=== PATIENT | male | born 1965 | race Caucasian/White ===

== ENCOUNTER 2017-10-29 17:22 | Inpatient (IN) | payer OTHER ==
[2017-10-29] MEDS ORDERED: Sodium Chloride 0.9% 10 ML Syringe FLUSH PRN (17:34)
[2017-10-29] MEDS ORDERED: HYDROmorphone 0.5 MG/0.5 ML SYRINGE IVPUSH ONE ×2 (17:35→19:34)
--- NOTE | 2017-10-29 18:49 | EDM.PDOC ---
ED HPI GENERAL MEDICAL PROBLEM - General Chief Complaint: Lower Extremity Injury/Pain Stated Complaint: LEFT ANKLE INJURY Time Seen by Provider: 10/29/17 17:30 Source of Information: Reports: Patient History Limitations: Reports: No Limitations - History of Present Illness INITIAL COMMENTS - FREE TEXT/NARRATIVE: The patient was using a cheater bar and it slipped and he twisted and he heard a pop and felt severe pain above his ankle. He denies any other injury. He has a history of HTN and he is on meds. He has no fever, chills, cough, chest pain, shortness of breath, abdominal pain, nausea or vomiting. He could not walk on it when it happened. Onset: Sudden Duration: Minutes: Location: Reports: Lower Extremity, Left (lower leg) Quality: Reports: Sharp Severity: Severe Improves with: Reports: Immobilization Worsens with: Reports: Movement Context: Reports: Activity (His cheater bat slipped and he twisted) Associated Symptoms: Reports: No Other Symptoms Right Leg Pain Score (Numeric/FACES): 7 - Related Data Allergies Allergy/AdvReac Type Severity Reaction Status Date / Time No Known Allergies Allergy Verified 10/29/17 17:33 Home Meds: Home Meds Losartan [Cozaar] 100 mg PO BEDTIME 10/29/17 [History] Metoprolol Tartrate 50 mg PO DAILY 10/29/17 [History] Past Medical History HEENT History: Reports: Impaired Vision Cardiovascular History: Reports: Hypertension Musculoskeletal History: Reports: Fracture Other Musculoskeletal History: Shoulder Fx - Past Surgical History HEENT Surgical History: Reports: Tonsillectomy Other Musculoskeletal Surgeries/Procedures:: Elbow surgery Social & Family History - Family History Family Medical History: Noncontributory - Tobacco Use Smoking Status *Q: Never Smoker - Alcohol Use Days Per Week of Alcohol Use: 7 Number of Drinks Per Day: 10 Total Drinks Per Week: 70 - Recreational Drug Use Recreational Drug Use: No Review of Systems - Review of Systems Review Of Systems: See Below Constitutional: Reports: No Symptoms Eyes: Reports: No Symptoms Ears: Reports: No Symptoms Nose: Reports: No Symptoms Mouth/Throat: Reports: No Symptoms Respiratory: Reports: No Symptoms Cardiovascular: Reports: No Symptoms GI/Abdominal: Reports: No Symptoms Genitourinary: Reports: No Symptoms Musculoskeletal: Reports: Other (Severe pain and deformity to the left lower leg ) ED EXAM, GENERAL - Physical Exam Exam: See Below Exam Limited By: No Limitations General Appearance: Alert, No Apparent Distress Ears: Normal External Exam Nose: Normal Inspection Head: Atraumatic, Normocephalic Neck: Normal Inspection Respiratory/Chest: No Respiratory Distress, Lungs Clear, Normal Breath Sounds Cardiovascular: Regular Rate, Rhythm, No Edema, No Murmur GI/Abdominal: Soft, Non-Tender, No Organomegaly, No Mass Back Exam: Normal Inspection Extremities: Other (mild deformity just proximal to the ankle. Pain upon palption to that area and good sensation and pulses distally.) ED TRAUMA EXTREMITY PROCEDURES - Splinting Left Lower Extremity Splint Site: Left lower leg Pre-Procedure NV Status: Normal Post-Procedure NV Status: Normal Splint Material: Fiberglass Splint Design: Stirrup (and posterior lower leg) Applied & Form Fitted By: Provider Provider Post-Splint Application NV Check: NV Status Normal, Good Position Complications: No Course - Vital Signs Last Recorded V/S: Last Vital Signs Temp 97.3 F 10/29/17 17:29 Pulse 71 10/29/17 17:29 Resp 18 10/29/17 17:29 BP 141/81 H 10/29/17 17:29 Pulse Ox 100 10/29/17 17:29 - Orders/Labs/Meds Orders: Active Orders 24 hr Category Date Time Status Peripheral IV Care [RC] . DIRECTED Care 10/29/17 17:35 Active Ankle Min 3V Lt [CR] Stat Exams 10/29/17 17:35 Taken Sodium Chloride 0.9% [Saline Flush] Med 10/29/17 17:34 Active 10 ml FLUSH ASDIRECTED PRN Peripheral IV Insertion Adult [OM.PC] Routine Oth 10/29/17 17:34 Ordered Medication Orders Sodium Chloride (Saline Flush) 10 ml FLUSH ASDIRECTED PRN PRN Reason: Keep Vein Open Last Admin: 10/29/17 17:46 Dose: 10 ml Meds: Medications Generic Name Dose Route Start Last Admin Trade Name Freq PRN Reason Stop Dose Admin Sodium Chloride 10 ml 10/29/17 17:34 10/29/17 17:46 Saline Flush FLUSH 10 ml ASDIRECTED PRN Administration Keep Vein Open Discontinued Medications Generic Name Dose Route Start Last Admin Trade Name Freq PRN Reason Stop Dose Admin Hydromorphone HCl 0.5 mg 10/29/17 17:35 10/29/17 17:46 Dilaudid IVPUSH 10/29/17 17:36 0.5 mg ONETIME ONE Administration Hydromorphone HCl 0.5 mg 10/29/17 19:34 10/29/17 19:39 Dilaudid IVPUSH 10/29/17 19:35 0.5 mg ONETIME ONE Administration - Re-Assessments/Exams Free Text/Narrative Re-Assessment/Exam: 10/29/17 20:00 I ordered an IV saline lock, dilaudid 0.5mg IV, and an x-ray. His x-ray shows a spiral fracture of the distal tib/fib. I called Dr Zelaya and he came to see the patient. He asked if I can call Dr Fitzgerald and see if she could admit. She agreed. I gave him more dilaudid 0.5mg IV before splinting. Departure - Departure Time of Disposition: 20:05 Disposition: Refer to Observation Condition: Good Clinical Impression: Fracture of distal end of tibia with fibula Qualifiers: Encounter type: initial encounter Fracture type: closed Laterality: left Qualified Code(s): S82.302A - Unspecified fracture of lower end of left tibia, initial encounter for closed fracture; S82.832A - Other fracture of upper and lower end of left fibula, initial encounter for closed fracture - Discharge Information Referrals: Tamie Huitron DO [Primary Care Provider] - Forms: ED Department Discharge - My Orders Last 24 Hours: My Active Orders 10/29/17 17:34 Sodium Chloride 0.9% [Saline Flush] 10 ml FLUSH ASDIRECTED PRN Peripheral IV Insertion Adult [OM.PC] Routine 10/29/17 17:35 Peripheral IV Care [RC] . DIRECTED Ankle Min 3V Lt [CR] Stat - Assessment/Plan Last 24 Hours: My Active Orders 10/29/17 17:34 Sodium Chloride 0.9% [Saline Flush] 10 ml FLUSH ASDIRECTED PRN Peripheral IV Insertion Adult [OM.PC] Routine 10/29/17 17:35 Peripheral IV Care [RC] . DIRECTED Ankle Min 3V Lt [CR] Stat
--- NOTE | 2017-10-29 20:50 | PCM.HP ---
H&P History of Present Illness - General Date of Service: 10/29/17 Admit Problem/Dx: Admission Diagnosis/Problem Admission Diagnosis/Problem Fracture of ankle Source of Information: Patient, Provider - History of Present Illness Initial Comments - Free Text/Narative: 51 year old male with PMH of hypertension presents with fractured distal left tib-fib. He will be scheduled for ORIF on 10/30/17. He denies CP, SOB, othopnea, PND or a syncopal episode. He is able to do chores around the house without difficulty. + Onset of Symptoms: Reports: Sudden Symptom Onset Date: 10/29/17 Duration of Symptoms: Reports: Hour(s):, Getting Worse Location: Reports: Lower Extremity, Left Quality: Reports: Throbbing Severity: Moderate Improves with: Reports: Medication Worsens with: Reports: Movement Associated Symptoms: Reports: No Other Symptoms Right Leg Pain Score (Numeric/FACES): 7 - Related Data Allergies/Adverse Reactions: Allergies Allergy/AdvReac Type Severity Reaction Status Date / Time No Known Allergies Allergy Verified 10/29/17 17:33 Home Medications: Home Meds Losartan [Cozaar] 100 mg PO BEDTIME 10/29/17 [History] Metoprolol Tartrate 50 mg PO DAILY 10/29/17 [History] Levothyroxine Sodium [Synthroid] 125 mcg PO DAILY 10/30/17 [History] Past Medical History HEENT History: Reports: Impaired Vision Cardiovascular History: Reports: Hypertension Musculoskeletal History: Reports: Fracture Other Musculoskeletal History: Shoulder Fx - Past Surgical History HEENT Surgical History: Reports: Tonsillectomy Other Musculoskeletal Surgeries/Procedures:: Elbow surgery Social & Family History - Family History Family Medical History: Noncontributory - Tobacco Use Smoking Status *Q: Never Smoker - Alcohol Use Days Per Week of Alcohol Use: 7 Number of Drinks Per Day: 10 Total Drinks Per Week: 70 - Recreational Drug Use Recreational Drug Use: No H&P Review of Systems - Review of Systems: Review Of Systems: ROS reveals no pertinent complaints other than HPI. Exam - Exam Exam: See Below - Vital Signs Vital Signs: Last Vital Signs Temp 36.3 C 10/29/17 17:29 Pulse 71 10/29/17 17:29 Resp 18 10/29/17 17:29 BP 141/81 H 10/29/17 17:29 Pulse Ox 100 10/29/17 17:29 Weight: 117.934 kg - Exam Quality Assessment: DVT Prophylaxis General: Alert, Oriented, Cooperative HEENT: Conjunctiva Clear, Nares Patent, Normal Nasal Septum, Pupils Equal, Pupils Reactive, PERRLA Neck: Supple, Trachea Midline Lungs: Clear to Auscultation, Normal Respiratory Effort Cardiovascular: Regular Rate, Regular Rhythm GI/Abdominal Exam: Normal Bowel Sounds, Soft, Non-Tender, No Organomegaly, No Distention (Male) Exam: Deferred Rectal (Males) Exam: Deferred Back Exam: Normal Inspection Extremities: Normal Inspection, Normal Capillary Refill, Leg Pain (left sided), Redness Skin: Warm Neurological: Cranial Nerves Intact, Reflexes Equal Bilateral, Normal Speech Neuro Extensive - Mental Status: Alert, Oriented x3, Normal Mood/Affect, Normal Cognition, Memory Intact Neuro Extensive - Motor, Sensory, Reflexes: CN II-XII Intact Psychiatric: Alert, Normal Affect, Normal Mood - Patient Data Result Diagrams: 10/29/17 17:35 10/29/17 17:35 - Problem List (1) Hypertension SNOMED Code(s): 73262505 ICD Code: I10 - ESSENTIAL (PRIMARY) HYPERTENSION Status: Acute Current Visit: Yes (2) BMI 37.0-37.9, adult SNOMED Code(s): 838760224 ICD Code: Z68.37 - BODY MASS INDEX (BMI) 37.0-37.9, ADULT Status: Acute Current Visit: Yes (3) Fracture of distal end of tibia with fibula SNOMED Code(s): 306492291, 486854059 ICD Code: S82.309A - UNSP FRACTURE OF LOWER END OF UNSP TIBIA, INIT FOR CLOS FX; S82.839A - OTH FRACTURE OF UPPER AND LOWER END OF UNSP FIBULA, INIT Status : Acute Current Visit: Yes Qualifiers: Encounter type: initial encounter Fracture type: closed Laterality: left Qualified Code(s): S82.302A - Unspecified fracture of lower end of left tibia , initial encounter for closed fracture; S82.832A - Other fracture of upper and lower end of left fibula, initial encounter for closed fracture Problem List Initiated/Reviewed/Updated: Yes Orders Last 24hrs: Active Orders 24 hr Category Date Time Status Patient Status [ADT] Routine ADT 10/29/17 20:40 Active Peripheral IV Care [RC] . DIRECTED Care 10/29/17 17:35 Active Ankle Min 3V Lt [CR] Stat Exams 10/29/17 17:35 Taken Sodium Chloride 0.9% [Saline Flush] Med 10/29/17 17:34 Active 10 ml FLUSH ASDIRECTED PRN Peripheral IV Insertion Adult [OM.PC] Routine Oth 10/29/17 17:34 Ordered Medication Orders Sodium Chloride (Saline Flush) 10 ml FLUSH ASDIRECTED PRN PRN Reason: Keep Vein Open Last Admin: 10/29/17 17:46 Dose: 10 ml Assessment/Plan Comment:: Impression: Middle aged male s/p fall with subsequent LLE fracture able to do > 4 METS Mild-moderate surgical risk, may proceed to surgery Hypertension HLD, unknown Obese-->BMI>/= 37.3 Quey ETOH dependence/abuse Plan: [facility] protocol-->post op Ortho surgery--ORIF HTN meds--DO NOT STOP BB to avoid withdrawal Daily Labs PT/OT post op DVT/GI prophylaxis
[2017-10-29] MEDS ORDERED: HYDROmorphone 0.5 MG/0.5 ML SYRINGE IVPUSH PRN (20:52)
[2017-10-29] MEDS ORDERED: Ketorolac 15 MG/ML SDV IVPUSH PRN (20:54)
[2017-10-29] MEDS ORDERED: hydrALAZINE 20 MG/ML SDV IVPUSH PRN (20:55)
[2017-10-29] MEDS ORDERED: Temazepam 7.5 MG Cap PO PRN (20:56)
[2017-10-29] MEDS ORDERED: Acetaminophen 325 MG Tab PO PRN (20:59)
[2017-10-29] MEDS ORDERED: Ondansetron 4 MG/2 ML SDV IVPUSH PRN (20:59)
[2017-10-29] MEDS ORDERED: Lactated Ringers 1,000 ML ONE (22:15)
[2017-10-29] MEDS: Metoprolol Tartrate 25 MG Tab PO SCH (22:21)
[2017-10-29] MEDS: Losartan 100 MG Tab PO SCH (22:21)
[2017-10-30] MEDS ORDERED: Lactated Ringers 1,000 ML IV SCH (05:00)
--- NOTE | 2017-10-30 07:15 | CR ---
Left ankle: Four views of the left ankle were obtained. Comparison: No prior study. Soft tissue swelling is identified. Mildly comminuted fractures are identified within the distal diaphysis of the tibia and fibula with mild displacement. Small plantar spur is incidentally noted. Ankle mortise is fairly symmetric. Fracture also is noted within the posterior malleolus. Impression: 1. Distal diaphyseal tibia and fibular fractures with mild displacement. Tibial fracture extends into the posterior malleolus. 2. Soft tissue swelling. Diagnostic code #3
[2017-10-30] MEDS ORDERED: Iodine/Sodium Iodide 2% Tincture 30 ML Bottle ONE (07:26)
[2017-10-30] MEDS ORDERED: Bupivacaine 0.5% 30 ML SDV ONE (07:27)
--- NOTE | 2017-10-30 07:30 | PCM.PREANE ---
Preanesthetic Assessment - Anesthesia/Transfusion/Family Hx Anesthesia History: Prior Anesthesia Without Reaction Family History of Anesthesia Reaction: No Transfusion History: No Prior Transfusion(s) - Review of Systems General: No Symptoms Pulmonary: No Symptoms Cardiovascular: No Symptoms Gastrointestinal: No Symptoms Neurological: No Symptoms Other: Reports: Thyroid Problems (hypothyroid) - Physical Assessment NPO Status Date: 10/30/17 NPO Status Time: 00:01 Pulse: 75 O2 Sat by Pulse Oximetry: 97 Respiratory Rate: 18 Blood Pressure: 148/84 Temperature: 36.6 C Vital Signs: Last Vital Signs Temp 36.6 C 10/30/17 05:59 Pulse 75 10/30/17 05:59 Resp 18 10/30/17 05:59 BP 148/84 H 10/30/17 05:59 Pulse Ox 97 10/30/17 05:59 Height: 1.78 m Weight: 117.934 kg ASA Class: 2 Mental Status: Alert & Oriented x3 Airway Class: Mallampati = 1 Dentition: Reports: Normal Dentition, Missing Tooth/Teeth Thyro-Mental Finger Breadths: 2 Mouth Opening Finger Breadths: 3 ROM/Head Extension: Full Lungs: Clear to Auscultation, Normal Respiratory Effort Cardiovascular: Regular Rate, Regular Rhythm, No Murmurs - Lab Values: Laboratory Last Values WBC 9.10 K/mm3 (4.23-9.07) H 10/29/17 17:35 RBC 4.58 M/mm3 (4.63-6.08) L 10/29/17 17:35 Hgb 14.0 gm/L (13.7-17.5) 10/29/17 17:35 Hct 42.5 % (40.1-51.0) 10/29/17 17:35 MCV 92.8 fl (79.0-92.2) H 10/29/17 17:35 MCH 30.6 pg (25.7-32.2) 10/29/17 17:35 MCHC 32.9 g/dl (32.2-35.5) 10/29/17 17:35 RDW Std Deviation 42.8 fL (35.1-43.9) 10/29/17 17:35 Plt Count 269 K/mm3 (163-337) 10/29/17 17:35 MPV 9.2 fl (9.4-12.3) L 10/29/17 17:35 Neut % (Auto) 47.8 % (34.0-67.9) 10/29/17 17:35 Lymph % (Auto) 34.4 % (21.8-53.1) 10/29/17 17:35 Da[place]hin % (Auto) 12.0 % (5.3-12.2) 10/29/17 17:35 Eos % (Auto) 4.5 (0.8-7.0) 10/29/17 17:35 Baso % (Auto) 0.8 % (0.1-1.2) 10/29/17 17:35 Neut # (Auto) 4.35 K/mm3 (1.78-5.38) 10/29/17 17:35 Lymph # (Auto) 3.13 K/mm3 (1.32-3.57) 10/29/17 17:35 Dauphin # (Auto) 1.09 K/mm3 (0.30-0.82) H 10/29/17 17:35 Eos # (Auto) 0.41 K/mm3 (0.04-0.54) 10/29/17 17:35 Baso # (Auto) 0.07 K/mm3 (0.01-0.08) 10/29/17 17:35 PT 11.0 SECONDS (9.5-12.1) 10/29/17 17:35 INR 1.01 10/29/17 17:35 APTT 24 SECONDS (24-31) 10/29/17 17:35 Sodium 137 mEq/L (136-145) 10/29/17 17:35 Potassium 3.7 mEq/L (3.5-5.1) 10/29/17 17:35 Chloride 100 mEq/L (98-107) 10/29/17 17:35 Carbon Dioxide 25 mEq/L (21-32) 10/29/17 17:35 Anion Gap 15.7 (5-15) H 10/29/17 17:35 BUN 10 mg/dL (7-18) 10/29/17 17:35 Creatinine 1.1 mg/dL (0.7-1.3) 10/29/17 17:35 Est Cr Clr Drug Dosing 81.11 mL/min 10/29/17 17:35 Estimated GFR (MDRD) > 60 mL/min (>60) 10/29/17 17:35 BUN/Creatinine Ratio 9.1 (14-18) L 10/29/17 17:35 Glucose 135 mg/dL (74-106) H 10/29/17 17:35 Calcium 8.7 mg/dL (8.5-10.1) 10/29/17 17:35 Total Bilirubin 0.7 mg/dL (0.2-1.0) 10/29/17 17:35 AST 69 U/L (15-37) H 10/29/17 17:35 ALT 88 U/L (16-63) H 10/29/17 17:35 Alkaline Phosphatase 80 U/L (46-116) 10/29/17 17:35 Total Protein 7.4 g/dl (6.4-8.2) 10/29/17 17:35 Albumin 3.7 g/dl (3.4-5.0) 10/29/17 17:35 Globulin 3.7 gm/dL 10/29/17 17:35 Albumin/Globulin Ratio 1.0 (1-2) 10/29/17 17:35 - Allergies Allergies/Adverse Reactions: Allergies Allergy/AdvReac Type Severity Reaction Status Date / Time No Known Allergies Allergy Verified 10/29/17 17:33 - Anesthesia Plan Pre-Op Medication Ordered: Beta Jordy Beta Jordy: Metoprolol Med Last Dose Date: 10/29/17 Med Last Dose Time: 20:00 - Acknowledgements Anesthesia Type Planned: Spinal Pt an Appropriate Candidate for the Planned Anesthesia: Yes Alternatives and Risks of Anesthesia Discussed w Pt/Guardian: Yes Pt/Guardian Understands and Agrees with Anesthesia Plan: Yes PreAnesthesia Questionnaire HEENT History: Reports: Impaired Vision Cardiovascular History: Reports: Hypertension Gastrointestinal History: Reports: GERD Musculoskeletal History: Reports: Fracture Other Musculoskeletal History: Shoulder Fx Endocrine/Metabolic History: Reports: Hypothyroidism, Obesity/BMI 30+ - Infectious Disease History Infectious Disease History: Reports: Chicken Pox, Measles - Past Surgical History HEENT Surgical History: Reports: Tonsillectomy Other Musculoskeletal Surgeries/Procedures:: Elbow surgery - SUBSTANCE USE Smoking Status *Q: Never Smoker Tobacco Use Within Last Twelve Months: Smokeless Tobacco Second Hand Smoke Exposure: Yes Days Per Week of Alcohol Use: 7 Number of Drinks Per Day: 10 Total Drinks Per Week: 70 Date of Last Drink: 10/29/17 Recreational Drug Use History: No - HOME MEDS Home Medications: Home Meds Losartan [Cozaar] 100 mg PO BEDTIME 10/29/17 [History] Metoprolol Tartrate 50 mg PO DAILY 10/29/17 [History] Levothyroxine Sodium [Synthroid] 125 mcg PO DAILY 10/30/17 [History] - CURRENT (IN HOUSE) MEDS Current Meds: Current Medications Acetaminophen (Tylenol) 650 mg PO Q6H PRN PRN Reason: Pain/Fever Hydralazine HCl (Apresoline) 20 mg IVPUSH Q6H PRN PRN Reason: Hypertension Hydromorphone HCl (Dilaudid) 0.5 mg IVPUSH Q8H PRN PRN Reason: Pain (moderate 4-6) Lactated Ringer's (Ringers, Lactated) 1,000 mls @ 100 mls/hr IV ASDIRECTED RICCI Ketorolac Tromethamine (Toradol) 15 mg IVPUSH Q8H PRN PRN Reason: Pain (moderate 4-6) Last Admin: 10/29/17 22:22 Dose: 15 mg Losartan Potassium (Cozaar) 100 mg PO BEDTIME [facility] Last Admin: 10/29/17 22:21 Dose: 100 mg Metoprolol Tartrate (Lopressor) 25 mg PO Q12H [facility] Last Admin: 10/29/17 22:21 Dose: 25 mg Ondansetron HCl (Zofran) 4 mg IVPUSH Q8H PRN PRN Reason: Nausea/Vomiting Sodium Chloride (Saline Flush) 10 ml FLUSH ASDIRECTED PRN PRN Reason: Keep Vein Open Last Admin: 10/29/17 17:46 Dose: 10 ml Temazepam (Restoril) 7.5 mg PO BEDTIME PRN PRN Reason: Insomnia Discontinued Medications Hydromorphone HCl (Dilaudid) 0.5 mg IVPUSH ONETIME ONE Stop: 10/29/17 17:36 Last Admin: 10/29/17 17:46 Dose: 0.5 mg Hydromorphone HCl (Dilaudid) 0.5 mg IVPUSH ONETIME ONE Stop: 10/29/17 19:35 Last Admin: 10/29/17 19:39 Dose: 0.5 mg Lactated Ringer's (Ringers, Lactated) Confirm Administered Dose 1,000 mls @ as directed .ROUTE .STK-MED ONE Stop: 10/29/17 22:16 Last Admin: 10/29/17 22:22 Dose: 100 mls/hr
[2017-10-30] MEDS ORDERED: Midazolam 1 MG/ML 2 ML SDV ONE ×2 (07:40→10:49)
[2017-10-30] MEDS ORDERED: fentaNYL 100 MCG/2 ML SDV ONE (07:40)
[2017-10-30] MEDS ORDERED: Ondansetron 4 MG/2 ML SDV ONE (07:40)
[2017-10-30] MEDS ORDERED: Propofol 200 MG/20 ML SDV ONE ×4 (07:40→11:40)
[2017-10-30] MEDS ORDERED: Lidocaine 1% 4 ML ONE (07:41)
[2017-10-30] MEDS ORDERED: ceFAZolin 1 GM Vial ONE (07:41)
[2017-10-30] MEDS ORDERED: Bupivacaine 0.75% 30 ML SDV ONE (07:48)
[2017-10-30] MEDS ORDERED: Morphine PF 10 MG/10 ML SDV ONE (07:49)
[2017-10-30] MEDS ORDERED: Lactated Ringers 1,000 ML ONE ×2 (07:55→10:16)
[2017-10-30] MEDS: Metoprolol Tartrate 25 MG Tab PO SCH ×2 (08:30→21:22)
--- NOTE | 2017-10-30 09:09 | CONS ---
CONSULTING PHYSICIAN: Manuel Zelaya MD DATE OF CONSULTATION: 10/29/2017 HISTORY OF PRESENT ILLNESS: Orthopedic consultation called for evaluation of a 51-year-old male who suffered injury to his left lower extremity while working. He was working around a pipe using a cheater bar when he was pulling very hard, lost his balance, tripped, fell, causing severe injury to his lower left ankle area. The patient with severe pain, was brought to the emergency room. X-rays were taken. He was found to have a distal fracture of the tibia and fibula and orthopedic consultation was called for. The patient notes no other injuries. He had no loss of consciousness or head injuries or other areas of complaints of pain. He does state there is some numbness feeling in his toes and top of his left foot, but otherwise has been free of any type of a radicular type pain. The patient also noted no bleeding or any type of open wounds at the time of the accident. ALLERGIES: The patient has no known drug allergies. MEDICATIONS: The patient has a history of high blood pressure and increased cholesterol. MEDICATIONS: Include Toprol, along with losartan and a cholesterol lowering agent. SURGICAL HISTORY: Surgical history is positive. He has had previous left ulnar nerve surgery that required anesthesia. Notes no anesthesia problems or complications. The patient has a negative bleeding history, negative blood clot history. He is a nonsmoker. Alcohol is 2 or 3 beers a day in the evening after work. PHYSICAL EXAMINATION: GENERAL: Reveals a well-developed, well-nourished, 51-year-old male in moderate to severe distress. HEAD, EYES, EARS, NOSE, THROAT: Normocephalic. NECK: Supple. CHEST: Clear. COR: Regular rate. ABDOMEN: Soft. : Intact. Extremities: Examination of the left lower extremity reveals positive swelling and pain over the distal third of the left tibia-fibula. The patient shows no open lacerations. The patient has decreased sensation to the dorsum of his left foot. He does have positive toe flexion extension with minimal pain reaction. RADIOLOGY: X-rays were reviewed. This shows an oblique fracture of the distal tibia with some comminution and also a fracture of the distal fibula. After evaluation of the x-rays, the patient will be admitted on observation and will go to the medical service for clearance for surgery. PLAN: Plan will be for the patient to be scheduled for an open reduction and internal fixation of the left distal tibia fibula and any indicated procedure of the leg. We plan on performing an intramedullary kiran, possibly this may not be possible. We will have to do a plate fixation. This was all explained to the patient. He understands the procedure that we outlined to him and the sequence of the surgery and postop recovery phase. He understands that and has consented to the surgery. ROGELIO /[id number]
[2017-10-30] MEDS ORDERED: fentaNYL 100 MCG/2 ML SDV IVPUSH PRN (12:35)
[2017-10-30] MEDS ORDERED: HYDROmorphone 0.5 MG/0.5 ML Syringe IVPUSH PRN (12:35)
[2017-10-30] MEDS ORDERED: diphenhydrAMINE 50 MG/ML SDV IVPUSH PRN (12:35)
--- NOTE | 2017-10-30 12:35 | PCM.POSTAN ---
POST ANESTHESIA ASSESSMENT - MENTAL STATUS Mental Status: Alert, Oriented - VITAL SIGNS Pulse Rate: 60 SaO2: 99 Resp Rate: 10 Blood Pressure: 131/80 Temperature: 36.1 C - RESPIRATORY Respiratory Status: Respiratory Rate WNL, Airway Patent, O2 Saturation Stable, Supplemental Oxygen - CARDIOVASCULAR CV Status: Pulse Rate WNL - GASTROINTESTINAL GI Status: No Symptoms - PAIN Pain Score: 0 - POST OP HYDRATION Hydration Status: Adequate & Stable
[2017-10-30] MEDS ORDERED: Ondansetron 4 MG/2 ML SDV IVPUSH PRN (12:39)
[2017-10-30] MEDS ORDERED: Cyclobenzaprine 10 MG Tab PO PRN (12:39)
[2017-10-30] MEDS ORDERED: Morphine 15 MG Tab.ER PO SCH (12:45)
--- NOTE | 2017-10-30 14:16 | CR ---
Left ankle: Multiple fluoroscopic spot views were obtained utilizing C-arm device. Study shows a fracture within the distal tibia and fibula which is seen on previous ankle exam of 10/29/17. Study shows intraoperative placement of intramedullary kiran within the tibia. Fluoroscopy time given as 441.4 seconds. Impression: 1. Placement of intramedullary kiran across previous distal tibial fracture. Diagnostic code #2
--- NOTE | 2017-10-30 17:07 | DISCH ---
ADMISSION DATE: 10/29/2017 DISCHARGE DATE: 10/30/2017 FINAL DIAGNOSIS: 1. Acute displaced distal left tibia fracture, comminuted. 2. Displaced distal fibular fracture, left ankle. 3. Posterior malleolus fracture, left ankle. CONSULTANTS: Dr. Zelaya for Orthopedics evaluation and Dr. Fitzgerald for medical evaluation. SUMMARY OF THE HOSPITAL STAY: The patient was evaluated on admission through the emergency room on 10/29/2017, has sustained significant injuries to the left lower extremity with an x-ray showing displaced fractures. Also, the patient had a history of hypertension and medical history and was admitted to the Medical Service for medical stabilization. After the patient was medically stabilized, he was then taken to surgery on 10/30/2017, underwent a reduction of the distal tibia fracture with an intramedullary kiran, reduction of the fibular fracture, and also posterior malleolus fracture. He was then after surgery in the operating room was placed in a short-leg cast bivalved along with the left knee immobilizer. His postop recovery phase has been very stable. The patient has begun physical therapy for gait training. He will be using a walker or crutches, and the patient has stabilized with pain after the surgery and will be discharged to home today. CONDITION ON DISCHARGE: Stable to good. DIET: Regular. ACTIVITY: Activity level will be nonweightbearing, left lower extremity. To use crutches or walker. DISCHARGE MEDICATIONS: Flexeril 10 mg, MS Contin 15 mg, and Percocet 5 mg for the postoperative pain control. FOLLOW-UP: The patient is scheduled for a followup in 2 days after discharge at the [facility] for dressing change on his left knee. The patient will be discharged to his home with stable conditions noted. MMODAL /[id number]
--- NOTE | 2017-10-30 17:32 | PCM.PN ---
<Edna Tarango - Last Filed: 10/30/17 17:27> - General Info Date of Service: 10/30/17 Admission Dx/Problem (Free Text): Admission Diagnosis/Problem Admission Diagnosis/Problem Fracture of ankle Subjective Update: In to see Raf. He is resting comfortably in bed s/p surgical repair of his left ankle. He denies any F/C, pain, chest pain, SOB, N/V/D, headache. He has no complaints at this time. His leg bandaging his dry and intact. He is on 2L nasal cannula, does not normally wear at home. No concerns from nursing at this time. Functional Status: Reports: Pain Controlled, Tolerating Diet, Urinating - Review of Systems General: Reports: No Symptoms. Denies: Fever, Chills HEENT: Reports: No Symptoms Pulmonary: Reports: No Symptoms. Denies: Shortness of Breath, Cough Cardiovascular: Reports: No Symptoms. Denies: Chest Pain, Dyspnea on Exertion Gastrointestinal: Reports: No Symptoms. Denies: Abdominal Pain, Diarrhea, Nausea, Vomiting Genitourinary: Reports: No Symptoms Musculoskeletal: Reports: No Symptoms. Denies: Leg Pain Skin: Reports: No Symptoms Neurological: Reports: Difficulty Walking (s/p left ankle repair surgery), Gait Disturbance (s/p left ankle repair surgery). Denies: Confusion, Dizziness Psychiatric: Reports: No Symptoms - Patient Data Vitals - Most Recent: Last Vital Signs Temp 98.4 F 10/30/17 14:00 Pulse 54 L 10/30/17 14:00 Resp 12 10/30/17 14:00 BP 157/82 H 10/30/17 14:00 Pulse Ox 99 10/30/17 14:56 Weight - Most Recent: 117.934 kg I&O - Last 24 Hours: Intake & Output 10/30/17 10/30/17 10/30/17 06:59 14:59 22:59 Intake Total 919 300 200 Output Total 1100 1550 300 Balance -181 -1250 -100 Lab Results Last 24 Hours: Laboratory Results - last 24 hr 10/29/17 10/29/17 10/29/17 Range/Units 17:35 17:35 17:35 WBC 9.10 H (4.23-9.07) K/mm3 RBC 4.58 L (4.63-6.08) M/mm3 Hgb 14.0 (13.7-17.5) gm/L Hct 42.5 (40.1-51.0) % MCV 92.8 H (79.0-92.2) fl MCH 30.6 (25.7-32.2) pg MCHC 32.9 (32.2-35.5) g/dl RDW Std Deviation 42.8 (35.1-43.9) fL Plt Count 269 (163-337) K/mm3 MPV 9.2 L (9.4-12.3) fl Neut % (Auto) 47.8 (34.0-67.9) % Lymph % (Auto) 34.4 (21.8-53.1) % [place] % (Auto) 12.0 (5.3-12.2) % Eos % (Auto) 4.5 (0.8-7.0) Baso % (Auto) 0.8 (0.1-1.2) % Neut # (Auto) 4.35 (1.78-5.38) K/mm3 Lymph # (Auto) 3.13 (1.32-3.57) K/mm3 [place] # (Auto) 1.09 H (0.30-0.82) K/mm3 Eos # (Auto) 0.41 (0.04-0.54) K/mm3 Baso # (Auto) 0.07 (0.01-0.08) K/mm3 PT 11.0 (9.5-12.1) SECONDS INR 1.01 APTT 24 (24-31) SECONDS Sodium 137 (136-145) mEq/L Potassium 3.7 (3.5-5.1) mEq/L Chloride 100 (98-107) mEq/L Carbon Dioxide 25 (21-32) mEq/L Anion Gap 15.7 H (5-15) BUN 10 (7-18) mg/dL Creatinine 1.1 (0.7-1.3) mg/dL Est Cr Clr Drug Dosing 81.11 mL/min Estimated GFR (MDRD) > 60 (>60) mL/min BUN/Creatinine Ratio 9.1 L (14-18) Glucose 135 H (74-106) mg/dL Calcium 8.7 (8.5-10.1) mg/dL Total Bilirubin 0.7 (0.2-1.0) mg/dL AST 69 H (15-37) U/L ALT 88 H (16-63) U/L Alkaline Phosphatase 80 (46-116) U/L Total Protein 7.4 (6.4-8.2) g/dl Albumin 3.7 (3.4-5.0) g/dl Globulin 3.7 gm/dL Albumin/Globulin Ratio 1.0 (1-2) MRSA (PCR) 10/30/17 Range/Units 06:15 WBC (4.23-9.07) K/mm3 RBC (4.63-6.08) M/mm3 Hgb (13.7-17.5) gm/L Hct (40.1-51.0) % MCV (79.0-92.2) fl MCH (25.7-32.2) pg MCHC (32.2-35.5) g/dl RDW Std Deviation (35.1-43.9) fL Plt Count (163-337) K/mm3 MPV (9.4-12.3) fl Neut % (Auto) (34.0-67.9) % Lymph % (Auto) (21.8-53.1) % [place] % (Auto) (5.3-12.2) % Eos % (Auto) (0.8-7.0) Baso % (Auto) (0.1-1.2) % Neut # (Auto) (1.78-5.38) K/mm3 Lymph # (Auto) (1.32-3.57) K/mm3 [place] # (Auto) (0.30-0.82) K/mm3 Eos # (Auto) (0.04-0.54) K/mm3 Baso # (Auto) (0.01-0.08) K/mm3 PT (9.5-12.1) SECONDS INR APTT (24-31) SECONDS Sodium (136-145) mEq/L Potassium (3.5-5.1) mEq/L Chloride (98-107) mEq/L Carbon Dioxide (21-32) mEq/L Anion Gap (5-15) BUN (7-18) mg/dL Creatinine (0.7-1.3) mg/dL Est Cr Clr Drug Dosing mL/min Estimated GFR (MDRD) (>60) mL/min BUN/Creatinine Ratio (14-18) Glucose (74-106) mg/dL Calcium (8.5-10.1) mg/dL Total Bilirubin (0.2-1.0) mg/dL AST (15-37) U/L ALT (16-63) U/L Alkaline Phosphatase (46-116) U/L Total Protein (6.4-8.2) g/dl Albumin (3.4-5.0) g/dl Globulin gm/dL Albumin/Globulin Ratio (1-2) MRSA (PCR) Negative Med Orders - Current: Current Medications Acetaminophen (Tylenol) 650 mg PO Q6H PRN PRN Reason: Pain/Fever Cyclobenzaprine HCl (Flexeril) 10 - 20 mg PO Q8H PRN PRN Reason: Muscle Spasm Hydralazine HCl (Apresoline) 20 mg IVPUSH Q6H PRN PRN Reason: Hypertension Hydromorphone HCl (Dilaudid) 0.5 mg IVPUSH Q8H PRN PRN Reason: Pain (moderate 4-6) Lactated Ringer's (Ringers, Lactated) 1,000 mls @ 100 mls/hr IV ASDIRECTED [facility] Last Admin: 10/30/17 13:56 Dose: 100 mls/hr Ketorolac Tromethamine (Toradol) 30 mg IVPUSH Q6H PRN PRN Reason: Pain (severe 7-10) Levothyroxine Sodium (Levothyroxine) 125 mcg PO ACBREAKFAST [facility] Losartan Potassium (Cozaar) 100 mg PO BEDTIME [facility] Last Admin: 10/29/17 22:21 Dose: 100 mg Metoprolol Tartrate (Lopressor) 25 mg PO Q12H [facility] Last Admin: 10/30/17 08:30 Dose: 25 mg Ondansetron HCl (Zofran) 4 mg IVPUSH Q4H PRN PRN Reason: Nausea/Vomiting Oxycodone/Acetaminophen (Percocet 325-5 Mg) 1 - 2 tab PO Q4H PRN PRN Reason: Pain (severe 7-10) Sodium Chloride (Saline Flush) 10 ml FLUSH ASDIRECTED PRN PRN Reason: Keep Vein Open Last Admin: 10/29/17 17:46 Dose: 10 ml Temazepam (Restoril) 7.5 mg PO BEDTIME PRN PRN Reason: Insomnia Discontinued Medications Bupivacaine HCl (Marcaine 0.5%) Confirm Administered Dose 30 ml .ROUTE .STK-MED ONE Stop: 10/30/17 07:28 Last Admin: 10/30/17 12:04 Dose: 13 ml Bupivacaine HCl (Sensorcaine-Mpf 0.75%) Confirm Administered Dose 30 ml .ROUTE .STK-MED ONE Stop: 10/30/17 07:49 Cefazolin Sodium (Ancef) Confirm Administered Dose 2 gm .ROUTE .STK-MED ONE Stop: 10/30/17 07:42 Diphenhydramine HCl (Benadryl) 25 mg IVPUSH Q6H PRN PRN Reason: itching Stop: 10/30/17 15:00 Last Admin: 10/30/17 13:27 Dose: 25 mg Fentanyl (Sublimaze) Confirm Administered Dose 100 mcg .ROUTE .STK-MED ONE Stop: 10/30/17 07:41 Fentanyl (Sublimaze) 50 mcg IVPUSH Q5M PRN PRN Reason: pain Stop: 10/30/17 15:00 Hydromorphone HCl (Dilaudid) 0.5 mg IVPUSH ONETIME ONE Stop: 10/29/17 17:36 Last Admin: 10/29/17 17:46 Dose: 0.5 mg Hydromorphone HCl (Dilaudid) 0.5 mg IVPUSH ONETIME ONE Stop: 10/29/17 19:35 Last Admin: 10/29/17 19:39 Dose: 0.5 mg Hydromorphone HCl (Dilaudid) 0.5 mg IVPUSH ASDIRECTED PRN PRN Reason: Pain (severe 7-10) Stop: 10/30/17 15:00 Lactated Ringer's (Ringers, Lactated) Confirm Administered Dose 1,000 mls @ as directed .ROUTE .STK-MED ONE Stop: 10/29/17 22:16 Last Admin: 10/29/17 22:22 Dose: 100 mls/hr Lidocaine HCl (Xylocaine-Mpf 1%) Confirm Administered Dose 4 mls @ as directed .ROUTE .STK-MED ONE Stop: 10/30/17 07:42 Lactated Ringer's (Ringers, Lactated) Confirm Administered Dose 1,000 mls @ as directed .ROUTE .STK-MED ONE Stop: 10/30/17 07:56 Lactated Ringer's (Ringers, Lactated) Confirm Administered Dose 1,000 mls @ as directed .ROUTE .STK-MED ONE Stop: 10/30/17 10:17 Iodine (Iodine 2% Mild Tincture) Confirm Administered Dose 30 ml .ROUTE .STK- MED ONE Stop: 10/30/17 07:27 Last Admin: 10/30/17 11:42 Dose: 0.75 ml Ketorolac Tromethamine (Toradol) 15 mg IVPUSH Q8H PRN PRN Reason: Pain (moderate 4-6) Last Admin: 10/29/17 22:22 Dose: 15 mg Midazolam HCl (Versed 1 Mg/Ml) Confirm Administered Dose 2 mg .ROUTE .STK-MED ONE Stop: 10/30/17 07:41 Midazolam HCl (Versed 1 Mg/Ml) Confirm Administered Dose 2 mg .ROUTE .STK-MED ONE Stop: 10/30/17 10:50 Morphine Sulfate (Duramorph Pf) Confirm Administered Dose 10 mg .ROUTE .STK-MED ONE Stop: 10/30/17 07:50 Morphine Sulfate (Ms Contin) 15 mg PO ONETIME RICCI Stop: 10/30/17 15:00 Last Admin: 10/30/17 14:33 Dose: 15 mg Ondansetron HCl (Zofran) 4 mg IVPUSH Q8H PRN PRN Reason: Nausea/Vomiting Ondansetron HCl (Zofran) Confirm Administered Dose 4 mg .ROUTE .STK-MED ONE Stop: 10/30/17 07:41 Propofol (Diprivan 20 Ml) Confirm Administered Dose 200 mg .ROUTE .STK-MED ONE Stop: 10/30/17 07:41 Propofol (Diprivan 20 Ml) Confirm Administered Dose 400 mg .ROUTE .STK-MED ONE Stop: 10/30/17 09:54 Propofol (Diprivan 20 Ml) Confirm Administered Dose 200 mg .ROUTE .STK-MED ONE Stop: 10/30/17 09:56 Propofol (Diprivan 20 Ml) Confirm Administered Dose 200 mg .ROUTE .STK-MED ONE Stop: 10/30/17 11:41 - Exam Quality Assessment: Supplemental Oxygen (2L nasal cannula), DVT Prophylaxis. No : Urine Catheter General: Alert, Oriented, Cooperative, No Acute Distress HEENT: Pupils Equal, Pupils Reactive, EOMI, Mucous Membr. Moist/Justin Neck: Supple Lungs: Clear to Auscultation, Normal Respiratory Effort Cardiovascular: Regular Rate, Regular Rhythm GI/Abdominal Exam: Normal Bowel Sounds, Soft, Non-Tender, No Organomegaly, No Distention, No Abnormal Bruit, No Mass, Pelvis Stable (Male) Exam: Deferred Back Exam: Normal Inspection, Full Range of Motion Extremities: Normal Inspection, Non-Tender, No Pedal Edema, Normal Capillary Refill, Limited Range of Motion (s/p left ankle repair surgery) Peripheral Pulses: 2+: Posterior Tibial (L), Dorsalis Pedis (L), 3+: Posterior Tibial (R), Dorsalis Pedis (R) Skin: Warm, Dry, Intact Wound/Incisions: Healing Well, Dressing Dry and Intact, No Drainage Neurological: No New Focal Deficit Psy/Mental Status: Alert, Normal Affect, Normal Mood - Problem List & Annotations (1) Fracture of distal end of tibia with fibula SNOMED Code(s): 591390418, 938193033 Code(s): S82.309A - UNSP FRACTURE OF LOWER END OF UNSP TIBIA, INIT FOR CLOS FX; S82.839A - OTH FRACTURE OF UPPER AND LOWER END OF UNSP FIBULA, INIT Status : Acute Priority: High Current Visit: Yes Qualifiers: Encounter type: initial encounter Fracture type: closed Laterality: left Qualified Code(s): S82.302A - Unspecified fracture of lower end of left tibia , initial encounter for closed fracture; S82.832A - Other fracture of upper and lower end of left fibula, initial encounter for closed fracture - Problem List Review Problem List Initiated/Reviewed/Updated: Yes - Plan Plan:: Impression: Middle aged male s/p fall with subsequent LLE fracture able to do > 4 METS Mild-moderate surgical risk, may proceed to surgery Hypertension HLD, unknown Obese-->BMI>/= 37.3 Quey ETOH dependence/abuse Plan: [place] protocol-->post op Ortho surgery--ORIF HTN meds--DO NOT STOP BB to avoid withdrawal Daily Labs PT/OT post op DVT/GI prophylaxis <Chiqui Fitzgerald - Last Filed: 10/31/17 09:24> - Patient Data Vitals - Most Recent: Last Vital Signs Temp 37.2 C 10/31/17 08:34 Pulse 90 10/31/17 08:45 Resp 20 10/31/17 08:34 BP 110/56 L 10/31/17 08:45 Pulse Ox 96 10/31/17 08:34 I&O - Last 24 Hours: Intake & Output 10/30/17 10/31/17 10/31/17 22:59 06:59 14:59 Intake Total 1680 2400 Output Total 300 1400 Balance 1380 1000 Lab Results Last 24 Hours: Laboratory Results - last 24 hr 10/30/17 10/31/17 10/31/17 Range/Units 06:15 07:26 07:26 WBC 8.65 (4.23-9.07) K/mm3 RBC 3.87 L (4.63-6.08) M/mm3 Hgb 12.1 L (13.7-17.5) gm/L Hct 37.0 L (40.1-51.0) % MCV 95.6 H (79.0-92.2) fl MCH 31.3 (25.7-32.2) pg MCHC 32.7 (32.2-35.5) g/dl RDW Std Deviation 43.9 (35.1-43.9) fL Plt Count 210 (163-337) K/mm3 MPV 8.5 L (9.4-12.3) fl Neut % (Auto) 59.7 (34.0-67.9) % Lymph % (Auto) 20.5 L (21.8-53.1) % [place] % (Auto) 15.6 H (5.3-12.2) % Eos % (Auto) 3.4 (0.8-7.0) Baso % (Auto) 0.5 (0.1-1.2) % Neut # (Auto) 5.17 (1.78-5.38) K/mm3 Lymph # (Auto) 1.77 (1.32-3.57) K/mm3 [place] # (Auto) 1.35 H (0.30-0.82) K/mm3 Eos # (Auto) 0.29 (0.04-0.54) K/mm3 Baso # (Auto) 0.04 (0.01-0.08) K/mm3 Manual Slide Review Normal smear Sodium 136 (136-145) mEq/L Potassium 4.2 (3.5-5.1) mEq/L Chloride 102 (98-107) mEq/L Carbon Dioxide 28 (21-32) mEq/L Anion Gap 10.2 (5-15) BUN 11 (7-18) mg/dL Creatinine 1.1 (0.7-1.3) mg/dL Est Cr Clr Drug Dosing 81.11 mL/min Estimated GFR (MDRD) > 60 (>60) mL/min BUN/Creatinine Ratio 10.0 L (14-18) Glucose 140 H (74-106) mg/dL Calcium 8.4 L (8.5-10.1) mg/dL Magnesium 1.9 (1.8-2.4) mg/dl MRSA (PCR) Negative Med Orders - Current: Current Medications Acetaminophen (Tylenol) 650 mg PO Q6H PRN PRN Reason: Pain/Fever Cyclobenzaprine HCl (Flexeril) 10 - 20 mg PO Q8H PRN PRN Reason: Muscle Spasm Hydralazine HCl (Apresoline) 20 mg IVPUSH Q6H PRN PRN Reason: Hypertension Hydromorphone HCl (Dilaudid) 0.5 mg IVPUSH Q8H PRN PRN Reason: Pain (moderate 4-6) Ketorolac Tromethamine (Toradol) 30 mg IVPUSH Q6H PRN PRN Reason: Pain (severe 7-10) Last Admin: 10/31/17 06:44 Dose: 30 mg Levothyroxine Sodium (Levothyroxine) 125 mcg PO ACBREAKFAST [facility] Last Admin: 10/31/17 06:43 Dose: 125 mcg Losartan Potassium (Cozaar) 100 mg PO BEDTIME [facility] Last Admin: 10/30/17 21:23 Dose: 100 mg Metoprolol Tartrate (Lopressor) 25 mg PO Q12H [facility] Last Admin: 10/31/17 08:45 Dose: Not Given Ondansetron HCl (Zofran) 4 mg IVPUSH Q4H PRN PRN Reason: Nausea/Vomiting Oxycodone/Acetaminophen (Percocet 325-5 Mg) 1 - 2 tab PO Q4H PRN PRN Reason: Pain (severe 7-10) Last Admin: 10/31/17 06:44 Dose: 2 tab Sodium Chloride (Saline Flush) 10 ml FLUSH ASDIRECTED PRN PRN Reason: Keep Vein Open Last Admin: 10/29/17 17:46 Dose: 10 ml Temazepam (Restoril) 7.5 mg PO BEDTIME PRN PRN Reason: Insomnia Discontinued Medications Bupivacaine HCl (Marcaine 0.5%) Confirm Administered Dose 30 ml .ROUTE .STK-MED ONE Stop: 10/30/17 07:28 Last Admin: 10/30/17 12:04 Dose: 13 ml Bupivacaine HCl (Sensorcaine-Mpf 0.75%) Confirm Administered Dose 30 ml .ROUTE .STK-MED ONE Stop: 10/30/17 07:49 Cefazolin Sodium (Ancef) Confirm Administered Dose 2 gm .ROUTE .STK-MED ONE Stop: 10/30/17 07:42 Diphenhydramine HCl (Benadryl) 25 mg IVPUSH Q6H PRN PRN Reason: itching Stop: 10/30/17 15:00 Last Admin: 10/30/17 13:27 Dose: 25 mg Fentanyl (Sublimaze) Confirm Administered Dose 100 mcg .ROUTE .STK-MED ONE Stop: 10/30/17 07:41 Fentanyl (Sublimaze) 50 mcg IVPUSH Q5M PRN PRN Reason: pain Stop: 10/30/17 15:00 Hydromorphone HCl (Dilaudid) 0.5 mg IVPUSH ONETIME ONE Stop: 10/29/17 17:36 Last Admin: 10/29/17 17:46 Dose: 0.5 mg Hydromorphone HCl (Dilaudid) 0.5 mg IVPUSH ONETIME ONE Stop: 10/29/17 19:35 Last Admin: 10/29/17 19:39 Dose: 0.5 mg Hydromorphone HCl (Dilaudid) 0.5 mg IVPUSH ASDIRECTED PRN PRN Reason: Pain (severe 7-10) Stop: 10/30/17 15:00 Lactated Ringer's (Ringers, Lactated) 1,000 mls @ 100 mls/hr IV ASDIRECTED [facility] Last Admin: 10/30/17 13:56 Dose: 100 mls/hr Lactated Ringer's (Ringers, Lactated) Confirm Administered Dose 1,000 mls @ as directed .ROUTE .STK-MED ONE Stop: 10/29/17 22:16 Last Admin: 10/29/17 22:22 Dose: 100 mls/hr Lidocaine HCl (Xylocaine-Mpf 1%) Confirm Administered Dose 4 mls @ as directed .ROUTE .STK-MED ONE Stop: 10/30/17 07:42 Lactated Ringer's (Ringers, Lactated) Confirm Administered Dose 1,000 mls @ as directed .ROUTE .STK-MED ONE Stop: 10/30/17 07:56 Lactated Ringer's (Ringers, Lactated) Confirm Administered Dose 1,000 mls @ as directed .ROUTE .STK-MED ONE Stop: 10/30/17 10:17 Iodine (Iodine 2% Mild Tincture) Confirm Administered Dose 30 ml .ROUTE .STK- MED ONE Stop: 10/30/17 07:27 Last Admin: 10/30/17 11:42 Dose: 0.75 ml Ketorolac Tromethamine (Toradol) 15 mg IVPUSH Q8H PRN PRN Reason: Pain (moderate 4-6) Last Admin: 10/29/17 22:22 Dose: 15 mg Midazolam HCl (Versed 1 Mg/Ml) Confirm Administered Dose 2 mg .ROUTE .STK-MED ONE Stop: 10/30/17 07:41 Midazolam HCl (Versed 1 Mg/Ml) Confirm Administered Dose 2 mg .ROUTE .STK-MED ONE Stop: 10/30/17 10:50 Morphine Sulfate (Duramorph Pf) Confirm Administered Dose 10 mg .ROUTE .STK-MED ONE Stop: 10/30/17 07:50 Morphine Sulfate (Ms Contin) 15 mg PO ONETIME [facility] Stop: 10/30/17 15:00 Last Admin: 10/30/17 14:33 Dose: 15 mg Ondansetron HCl (Zofran) 4 mg IVPUSH Q8H PRN PRN Reason: Nausea/Vomiting Ondansetron HCl (Zofran) Confirm Administered Dose 4 mg .ROUTE .STK-MED ONE Stop: 10/30/17 07:41 Propofol (Diprivan 20 Ml) Confirm Administered Dose 200 mg .ROUTE .STK-MED ONE Stop: 10/30/17 07:41 Propofol (Diprivan 20 Ml) Confirm Administered Dose 400 mg .ROUTE .STK-MED ONE Stop: 10/30/17 09:54 Propofol (Diprivan 20 Ml) Confirm Administered Dose 200 mg .ROUTE .STK-MED ONE Stop: 10/30/17 09:56 Propofol (Diprivan 20 Ml) Confirm Administered Dose 200 mg .ROUTE .STK-MED ONE Stop: 10/30/17 11:41 Tamsulosin HCl (Flomax) 0.4 mg PO ONETIME ONE Stop: 10/30/17 20:48 Last Admin: 10/30/17 21:21 Dose: 0.4 mg - Problem List & Annotations (1) Hypertension SNOMED Code(s): 97489510 Code(s): I10 - ESSENTIAL (PRIMARY) HYPERTENSION Status: Acute Current Visit: Yes (2) BMI 37.0-37.9, adult SNOMED Code(s): 116997124 Code(s): Z68.37 - BODY MASS INDEX (BMI) 37.0-37.9, ADULT Status: Acute Current Visit: Yes (3) Fracture of distal end of tibia with fibula SNOMED Code(s): 062363910, 245443044 Code(s): S82.309A - UNSP FRACTURE OF LOWER END OF UNSP TIBIA, INIT FOR CLOS FX; S82.839A - OTH FRACTURE OF UPPER AND LOWER END OF UNSP FIBULA, INIT Status : Acute Priority: High Current Visit: Yes Qualifiers: Encounter type: initial encounter Fracture type: closed Laterality: left Qualified Code(s): S82.302A - Unspecified fracture of lower end of left tibia , initial encounter for closed fracture; S82.832A - Other fracture of upper and lower end of left fibula, initial encounter for closed fracture - My Orders Last 24 Hours: My Active Orders 10/30/17 09:00 Consult to Occupational Therapy [OT Evaluation and Treatment] [CONS] Routine 10/30/17 13:00 Consult to Physical Therapy [PT Evaluation and Treatment] [CONS] Routine 10/31/17 01:22 Up With Assistance [RC] ASDIRECTED 10/31/17 06:00 Levothyroxine 125 mcg PO ACBREAKFAST - Plan Plan:: POST OP ORIF LLE (ANKLE)---PRIMARY SERVICE IS NOW ORTHOPEDIC SURGERY; DISCHARGE SUMMARY AND PRIMARY DECISION FOR DISCHARGE PER ORTHO
[2017-10-30] MEDS ORDERED: Tamsulosin 0.4 MG Cap.ER PO ONE (20:47)
[2017-10-30] MEDS: Ketorolac 30 MG/ML SDV IVPUSH PRN (21:23)
[2017-10-30] MEDS: Losartan 100 MG Tab PO SCH (21:23)
[2017-10-30] MEDS: Acetaminophen/oxyCODONE 325-5 MG Tab PO PRN (21:24)
[2017-10-31] MEDS ORDERED: Levothyroxine 125 MCG Tab PO SCH (06:00)
[2017-10-31] MEDS: Ketorolac 30 MG/ML SDV IVPUSH PRN (06:44)
[2017-10-31] MEDS: Acetaminophen/oxyCODONE 325-5 MG Tab PO PRN (06:44)
--- NOTE | 2017-10-31 07:22 | OR ---
DATE OF OPERATION: 10/30/2017 SURGEON: Manuel Zelaya MD PREOPERATIVE DIAGNOSIS: 1. Displaced distal tibia fracture, left leg. 2. Displaced fibular fracture, distal left leg. 3. Posterior malleolus fracture, left leg. POSTOPERATIVE DIAGNOSIS: 1. Displaced distal tibia fracture, left leg. 2. Displaced fibular fracture, distal left leg. 3. Posterior malleolus fracture, left leg. ANESTHESIA: Spinal with sedation. OPERATION PERFORMED: 1. Reduction of left tibia fracture, intramedullary kiran fixation, left tibia. 2. Closed reduction, left fibular fracture. 3. Closed reduction, posterior malleolus fracture, left ankle. ESTIMATED BLOOD LOSS: 100 mL. DESCRIPTION OF PROCEDURE: The patient was taken to the operating room in supine position and was placed under a sedation and then a spinal anesthesia was administered. After adequate anesthesia, the patient was then transferred to the fracture table, positioned for intramedullary kiran fixation approach to the left knee. Once the patient was positioned on the fracture table with the left knee flexed, operation then proceeded with fluoroscopy being brought in to evaluate the fracture itself. With slight traction, the fracture could be reduced and also some separation was noted at the fracture line and just with minimal pressure movements, the fracture of the fibula and also tibia and posterior malleolus was then reduced. Operation then proceeded with prepping and draping of the left lower extremity by standard technique with approach to the left knee through a medial incision paralleling the patellar tendon proximally. Once prepping and draping was completed, the patella tendon proximally was then palpated and then a slight curved incision was carried beginning at the inferior pole of the patella and extending and paralleling the medial edge of the patellar tendon. Penetrating through the skin and subcutaneous tissues, sharp dissection was carried down through the fascia that parallel the patellar tendon medially and then sharp dissection was carried down to the tibial plateau. An awl was then used to create a starting hole and then a pin was then used as a guide pin to determine the angle into the tibia and alignment. Once that was accomplished, the operation proceeded with completion of the all reaming of the proximal tibia. The above kiran was then inserted in a [id number] fashion under fluoroscopic evaluation. It was carried down to the fracture site where the fracture was then reduced and then the ball pin was then extended across the fracture down into and imbedded into the superior portion of the articular joint surface, the region of the calcar area from the previous epiphysis. Once that was in place, the operation proceeded with x-rays to make sure AP and laterals showed the kiran in place. Once that was satisfied, the fracture went through some reduction and then reaming was then carried out to 11 mm. With reaming across the fracture site, this did deposit significant bone for an intrabony bone graft being formed. Once I was completed the reaming, the operation proceeded with insertion of a 10 mm pin that was measured for 34.5 cm. The pin was then inserted from a proximal-distal fashion with intramedullary kiran being placed down across the fracture site and imbedded into the distal portion of the tibia and fragment with reduction being carried out. Once the pin was in place distally, a screw was then placed across the distal hole to secure it and then slight impaction was then used in a [id number] fashion to close the slight offset that was present. Once that was accomplished, the operation proceeded with placement of an oblique screw across the proximal portion of the pin and this secured the kiran. The operation proceeded with irrigation of the wound areas. The distal wounds for the screw fixation of the distal tibia were closed with skin fazal. The proximal wound and the deep tissues were closed with #1 Vicryl, subcutaneous tissues with 2-0 Vicryl, and the skin with skin fazal and the proximal screw site was also closed with fazal. The hard copy x-rays were taken at the completion of the surgery, found to be satisfactory. Operation then proceeded with standard dressings being applied on the leg. A short-leg cast, bivalved, was placed on the lower extremity to stabilize the fibular fracture and posterior malleolus fracture and proximally soft dressings were used and then a knee immobilizer. The patient tolerated the procedure well. He left the operating room in stable condition to his room for recovery. [facility] /[id number]
--- NOTE | 2017-10-31 08:11 | PCM48HPAN ---
Post Anesthesia Note - EVALUATION WITHIN 48HRS OF ANESTHETIC Vital Signs in Normal Range: Yes Patient Participated in Evaluation: Yes Respiratory Function Stable: Yes Airway Patent: Yes Cardiovascular Function Stable: Yes Hydration Status Stable: Yes Pain Control Satisfactory: Yes Nausea and Vomiting Control Satisfactory: Yes Mental Status Recovered: Yes
[2017-10-31] MEDS: Metoprolol Tartrate 25 MG Tab PO SCH (08:45)
--- NOTE | 2017-10-31 09:36 | PCM.PN ---
- General Info Date of Service: 10/31/17 Admission Dx/Problem (Free Text): Admission Diagnosis/Problem Admission Diagnosis/Problem Fracture of ankle Subjective Update: In to see Raf. He is in good spirits and lying in bed. He was finally able to urinate late last nigh and has been having no issues today. Therapies have been seeing the patient and he has been doing well. Dr. Zelaya was in to see him and has said he is cleared for discharge. From a hospitalist standpoint there are no concerns. He will be discharged today. Functional Status: Reports: Pain Controlled, Tolerating Diet, Ambulating, Urinating. Denies: New Symptoms - Review of Systems General: Reports: No Symptoms. Denies: Fever, Weakness, Fatigue, Malaise, Chills HEENT: Reports: No Symptoms Pulmonary: Reports: No Symptoms. Denies: Shortness of Breath, Cough, Sputum, Wheezing Cardiovascular: Reports: No Symptoms. Denies: Chest Pain, Palpitations, Dyspnea on Exertion Gastrointestinal: Reports: No Symptoms. Denies: Abdominal Pain, Constipation, Decreased Appetite, Diarrhea, Nausea, Vomiting Genitourinary: Reports: No Symptoms Musculoskeletal: Reports: Leg Pain (-05/20) Skin: Reports: No Symptoms Neurological: Reports: No Symptoms Psychiatric: Reports: No Symptoms - Patient Data Vitals - Most Recent: Last Vital Signs Temp 99.0 F 10/31/17 08:34 Pulse 90 10/31/17 08:45 Resp 20 10/31/17 08:34 BP 110/56 L 10/31/17 08:45 Pulse Ox 96 10/31/17 08:34 Weight - Most Recent: 261 lb 8 oz I&O - Last 24 Hours: Intake & Output 10/30/17 10/31/17 10/31/17 22:59 06:59 14:59 Intake Total 1680 2400 Output Total 300 1400 Balance 1380 1000 Lab Results Last 24 Hours: Laboratory Results - last 24 hr 10/30/17 10/31/17 10/31/17 Range/Units 06:15 07:26 07:26 WBC 8.65 (4.23-9.07) K/mm3 RBC 3.87 L (4.63-6.08) M/mm3 Hgb 12.1 L (13.7-17.5) gm/L Hct 37.0 L (40.1-51.0) % MCV 95.6 H (79.0-92.2) fl MCH 31.3 (25.7-32.2) pg MCHC 32.7 (32.2-35.5) g/dl RDW Std Deviation 43.9 (35.1-43.9) fL Plt Count 210 (163-337) K/mm3 MPV 8.5 L (9.4-12.3) fl Neut % (Auto) 59.7 (34.0-67.9) % Lymph % (Auto) 20.5 L (21.8-53.1) % [place] % (Auto) 15.6 H (5.3-12.2) % Eos % (Auto) 3.4 (0.8-7.0) Baso % (Auto) 0.5 (0.1-1.2) % Neut # (Auto) 5.17 (1.78-5.38) K/mm3 Lymph # (Auto) 1.77 (1.32-3.57) K/mm3 [place] # (Auto) 1.35 H (0.30-0.82) K/mm3 Eos # (Auto) 0.29 (0.04-0.54) K/mm3 Baso # (Auto) 0.04 (0.01-0.08) K/mm3 Manual Slide Review Normal smear Sodium 136 (136-145) mEq/L Potassium 4.2 (3.5-5.1) mEq/L Chloride 102 (98-107) mEq/L Carbon Dioxide 28 (21-32) mEq/L Anion Gap 10.2 (5-15) BUN 11 (7-18) mg/dL Creatinine 1.1 (0.7-1.3) mg/dL Est Cr Clr Drug Dosing 81.11 mL/min Estimated GFR (MDRD) > 60 (>60) mL/min BUN/Creatinine Ratio 10.0 L (14-18) Glucose 140 H (74-106) mg/dL Calcium 8.4 L (8.5-10.1) mg/dL Magnesium 1.9 (1.8-2.4) mg/dl MRSA (PCR) Negative Med Orders - Current: Current Medications Acetaminophen (Tylenol) 650 mg PO Q6H PRN PRN Reason: Pain/Fever Cyclobenzaprine HCl (Flexeril) 10 - 20 mg PO Q8H PRN PRN Reason: Muscle Spasm Hydralazine HCl (Apresoline) 20 mg IVPUSH Q6H PRN PRN Reason: Hypertension Hydromorphone HCl (Dilaudid) 0.5 mg IVPUSH Q8H PRN PRN Reason: Pain (moderate 4-6) Ketorolac Tromethamine (Toradol) 30 mg IVPUSH Q6H PRN PRN Reason: Pain (severe 7-10) Last Admin: 10/31/17 06:44 Dose: 30 mg Levothyroxine Sodium (Levothyroxine) 125 mcg PO ACBREAKFAST [facility] Last Admin: 10/31/17 06:43 Dose: 125 mcg Losartan Potassium (Cozaar) 100 mg PO BEDTIME [facility] Last Admin: 10/30/17 21:23 Dose: 100 mg Metoprolol Tartrate (Lopressor) 25 mg PO Q12H [facility] Last Admin: 10/31/17 08:45 Dose: Not Given Ondansetron HCl (Zofran) 4 mg IVPUSH Q4H PRN PRN Reason: Nausea/Vomiting Oxycodone/Acetaminophen (Percocet 325-5 Mg) 1 - 2 tab PO Q4H PRN PRN Reason: Pain (severe 7-10) Last Admin: 10/31/17 06:44 Dose: 2 tab Sodium Chloride (Saline Flush) 10 ml FLUSH ASDIRECTED PRN PRN Reason: Keep Vein Open Last Admin: 10/29/17 17:46 Dose: 10 ml Temazepam (Restoril) 7.5 mg PO BEDTIME PRN PRN Reason: Insomnia Discontinued Medications Bupivacaine HCl (Marcaine 0.5%) Confirm Administered Dose 30 ml .ROUTE .STK-MED ONE Stop: 10/30/17 07:28 Last Admin: 10/30/17 12:04 Dose: 13 ml Bupivacaine HCl (Sensorcaine-Mpf 0.75%) Confirm Administered Dose 30 ml .ROUTE .STK-MED ONE Stop: 10/30/17 07:49 Cefazolin Sodium (Ancef) Confirm Administered Dose 2 gm .ROUTE .STK-MED ONE Stop: 10/30/17 07:42 Diphenhydramine HCl (Benadryl) 25 mg IVPUSH Q6H PRN PRN Reason: itching Stop: 10/30/17 15:00 Last Admin: 10/30/17 13:27 Dose: 25 mg Fentanyl (Sublimaze) Confirm Administered Dose 100 mcg .ROUTE .STK-MED ONE Stop: 10/30/17 07:41 Fentanyl (Sublimaze) 50 mcg IVPUSH Q5M PRN PRN Reason: pain Stop: 10/30/17 15:00 Hydromorphone HCl (Dilaudid) 0.5 mg IVPUSH ONETIME ONE Stop: 10/29/17 17:36 Last Admin: 10/29/17 17:46 Dose: 0.5 mg Hydromorphone HCl (Dilaudid) 0.5 mg IVPUSH ONETIME ONE Stop: 10/29/17 19:35 Last Admin: 10/29/17 19:39 Dose: 0.5 mg Hydromorphone HCl (Dilaudid) 0.5 mg IVPUSH ASDIRECTED PRN PRN Reason: Pain (severe 7-10) Stop: 10/30/17 15:00 Lactated Ringer's (Ringers, Lactated) 1,000 mls @ 100 mls/hr IV ASDIRECTED RICCI Last Admin: 10/30/17 13:56 Dose: 100 mls/hr Lactated Ringer's (Ringers, Lactated) Confirm Administered Dose 1,000 mls @ as directed .ROUTE .STK-MED ONE Stop: 10/29/17 22:16 Last Admin: 10/29/17 22:22 Dose: 100 mls/hr Lidocaine HCl (Xylocaine-Mpf 1%) Confirm Administered Dose 4 mls @ as directed .ROUTE .STK-MED ONE Stop: 10/30/17 07:42 Lactated Ringer's (Ringers, Lactated) Confirm Administered Dose 1,000 mls @ as directed .ROUTE .STK-MED ONE Stop: 10/30/17 07:56 Lactated Ringer's (Ringers, Lactated) Confirm Administered Dose 1,000 mls @ as directed .ROUTE .STK-MED ONE Stop: 10/30/17 10:17 Iodine (Iodine 2% Mild Tincture) Confirm Administered Dose 30 ml .ROUTE .STK- MED ONE Stop: 10/30/17 07:27 Last Admin: 10/30/17 11:42 Dose: 0.75 ml Ketorolac Tromethamine (Toradol) 15 mg IVPUSH Q8H PRN PRN Reason: Pain (moderate 4-6) Last Admin: 10/29/17 22:22 Dose: 15 mg Midazolam HCl (Versed 1 Mg/Ml) Confirm Administered Dose 2 mg .ROUTE .STK-MED ONE Stop: 10/30/17 07:41 Midazolam HCl (Versed 1 Mg/Ml) Confirm Administered Dose 2 mg .ROUTE .STK-MED ONE Stop: 10/30/17 10:50 Morphine Sulfate (Duramorph Pf) Confirm Administered Dose 10 mg .ROUTE .STK-MED ONE Stop: 10/30/17 07:50 Morphine Sulfate (Ms Contin) 15 mg PO ONETIME RICCI Stop: 10/30/17 15:00 Last Admin: 10/30/17 14:33 Dose: 15 mg Ondansetron HCl (Zofran) 4 mg IVPUSH Q8H PRN PRN Reason: Nausea/Vomiting Ondansetron HCl (Zofran) Confirm Administered Dose 4 mg .ROUTE .STK-MED ONE Stop: 10/30/17 07:41 Propofol (Diprivan 20 Ml) Confirm Administered Dose 200 mg .ROUTE .STK-MED ONE Stop: 10/30/17 07:41 Propofol (Diprivan 20 Ml) Confirm Administered Dose 400 mg .ROUTE .STK-MED ONE Stop: 10/30/17 09:54 Propofol (Diprivan 20 Ml) Confirm Administered Dose 200 mg .ROUTE .STK-MED ONE Stop: 10/30/17 09:56 Propofol (Diprivan 20 Ml) Confirm Administered Dose 200 mg .ROUTE .STK-MED ONE Stop: 10/30/17 11:41 Tamsulosin HCl (Flomax) 0.4 mg PO ONETIME ONE Stop: 10/30/17 20:48 Last Admin: 10/30/17 21:21 Dose: 0.4 mg - Exam Quality Assessment: DVT Prophylaxis General: Alert, Oriented, Cooperative, No Acute Distress HEENT: Pupils Equal, Pupils Reactive, EOMI, Mucous Membr. Moist/[place] Neck: Supple, Trachea Midline Lungs: Clear to Auscultation, Normal Respiratory Effort Cardiovascular: Regular Rate, Regular Rhythm GI/Abdominal Exam: Normal Bowel Sounds, Soft, Non-Tender, No Distention, No Abnormal Bruit, Pelvis Stable (Male) Exam: Deferred Back Exam: Normal Inspection, Full Range of Motion Extremities: No Pedal Edema, Normal Capillary Refill, Leg Pain, Limited Range of Motion, Other (Leg immobilizer on left let. Bandage in place. ) Peripheral Pulses: 2+: Radial (L), Radial (R), Posterior Tibial (L), Posterior Tibial (R), Dorsalis Pedis (L), Dorsalis Pedis (R) Skin: Warm, Dry, Intact Wound/Incisions: Dressing Dry and Intact, No Drainage Neurological: No New Focal Deficit Psy/Mental Status: Alert, Normal Affect, Normal Mood - Problem List & Annotations (1) Status post ORIF of fracture of ankle SNOMED Code(s): 687426735 Code(s): Z96.7 - PRESENCE OF OTHER BONE AND TENDON IMPLANTS; Z87.81 - PERSONAL HISTORY OF (HEALED) TRAUMATIC FRACTURE Status: Acute Priority: High Current Visit: Yes (2) BMI 37.0-37.9, adult SNOMED Code(s): 780871878 Code(s): Z68.37 - BODY MASS INDEX (BMI) 37.0-37.9, ADULT Status: Acute Priority: High Current Visit: Yes (3) Fracture of distal end of tibia with fibula SNOMED Code(s): 946540876, 039024693 Code(s): S82.309A - UNSP FRACTURE OF LOWER END OF UNSP TIBIA, INIT FOR CLOS FX; S82.839A - OTH FRACTURE OF UPPER AND LOWER END OF UNSP FIBULA, INIT Status : Acute Priority: High Current Visit: Yes Qualifiers: Encounter type: initial encounter Fracture type: closed Laterality: left Qualified Code(s): S82.302A - Unspecified fracture of lower end of left tibia , initial encounter for closed fracture; S82.832A - Other fracture of upper and lower end of left fibula, initial encounter for closed fracture (4) Hypertension SNOMED Code(s): 93261547 Code(s): I10 - ESSENTIAL (PRIMARY) HYPERTENSION Status: Chronic Priority : Medium Current Visit: Yes Qualifiers: Hypertension type: unspecified Qualified Code(s): I10 - Essential (primary ) hypertension - Problem List Review Problem List Initiated/Reviewed/Updated: Yes - Plan Plan:: Impression: S/P left ankle ORIF - Management per primary physician Middle aged male s/p fall with subsequent LLE fracture able to do > 4 METS Mild-moderate surgical risk, may proceed to surgery Hypertension HLD, unknown Obese-->BMI>/= 37.3 Quey ETOH dependence/abuse Plan: CIWA protocol-->post op Ortho surgery--ORIF HTN meds--DO NOT STOP BB to avoid withdrawal Daily Labs PT/OT post op DVT/GI prophylaxis POST OP ORIF LLE (ANKLE)---PRIMARY SERVICE IS NOW ORTHOPEDIC SURGERY; DISCHARGE SUMMARY AND PRIMARY DECISION FOR DISCHARGE PER ORTHO From a hospitalist standpoint Raf is doing well. His vital signs are stable. Labs look good. He has been working with therapies and doing well. He has urinated and been weaned off oxygen. He is clear for discharge pending primary ortho team agreement.
--- NOTE | 2017-11-01 07:49 | DISCH ---
ADMISSION DATE: 10/29/2017 DISCHARGE DATE: 10/31/2017 ADDENDUM: The patient was initially discharged on 10/30/2017 following a surgery for intramedullary kiran fixation of a left tibia fracture. The patient unfortunately in the postoperative phase in late afternoon was unable to void and also was having pain reaction, but due to the inability to void, a straight catheterization was used. The patient was kept for extended time to ensure that his urinary tract system would start functioning. The inability to void was probably secondary to the spinal anesthesia that was used, but the patient following the rest period and early in the morning of October 31 was able to void fully, and now is being seen this morning. He is stable. The patient is able to ambulate using a walker or crutches. He has gone through physical therapy rehab program. We will go ahead and follow through with the previous discharge that was used for him; however, the patient to have a followup appointment on 11/01 for dressing change about his left knee. The patient is stable at the time of discharge. He was also reinstructed on his pain medicine treatment, which would be MS Contin 15 mg every 12 hours, Percocet for breakthrough pain, and Flexeril 10 mg as a muscle relaxant, and instructed to keep his leg elevated and nonweightbearing. ROGELIO /[id number]
== END 2017-10-31 10:15 | disposition home or self-care (01) | DRG 494 ==
LOC: JD.ED 17:22 → JD.MS 20:44
PROVIDERS: ADMIT Internal Medicine Cardiovascular Disease; ATTEND Internal Medicine Cardiovascular Disease
PROC: 0QSH04Z Reposition Left Tibia with Internal Fixation Device, Open Approach (ICD-10-PCS; principal; 2017-10-30)
PROC: 0QSKXZZ Reposition Left Fibula, External Approach (ICD-10-PCS; principal; 2017-10-30)
DX: S82.252A Displaced comminuted fracture of shaft of left tibia, initial encounter for closed fracture (principal); S82.832A Other fracture of upper and lower end of left fibula, initial encounter for closed fracture; I10 Essential (primary) hypertension; H54.7 Unspecified visual loss; E78.5 Hyperlipidemia, unspecified; E66.9 Obesity, unspecified; Z68.37 Body mass index [BMI] 37.0-37.9, adult; W01.0XXA Fall on same level from slipping, tripping and stumbling without subsequent striking against object, initial encounter; N39.8 Other specified disorders of urinary system; T88.59XA Other complications of anesthesia, initial encounter; Y84.8 Other medical procedures as the cause of abnormal reaction of the patient, or of later complication, without mention of misadventure at the time of the procedure; E03.9 Hypothyroidism, unspecified; Z79.899 Other long term (current) drug therapy
CPT/HCPCS: 29515; 36415; 73610-26-LT; 73610-LT; 76000; 76000-26; 80048; 80053; 83735; 85025; 85610; 85730; 87641; 93005; 96374; 96376; 97116-GP; 97161-GP; 97165-GO; 97530-GO; 97530-GP; 99285-25; A9270-GY; J0690; J1170; J1200; J1885; J2001; J2250; J2270; J2405; J2704; J3010; J3490; J7050; J7120

== ENCOUNTER 2023-04-10 06:35 | Emergency (ER) | payer OTHER ==
[2023-04-10] MEDS ORDERED: Sodium Chloride 0.9% 10 ML Syringe FLUSH PRN (06:53)
[2023-04-10 07:34] LABS: BASOPHILS ABSOLUTE AUTO 0.1 K/mm3 (0.0-0.2); BASOPHILS PERCENT AUTO 1.2 % (0.0-1.0); EOSINOPHILS ABSOLUTE AUTO 0.7 K/mm3 (0.0-0.4); EOSINOPHILS PERCENT AUTO 8.7 % (0.0-6.0); HEMATOCRIT 42.5 % (42.0-52.0); HEMOGLOBIN 14.4 gm/dl (14.0-18.0); IMMATURE GRAN ABSOLUTE AUTO 0.04 K/mm3 (0.00-0.05); IMMATURE GRAN PERCENT AUTO 0.5 % (0.0-0.4); LYMPHOCYTES ABSOLUTE AUTO 3.1 K/mm3 (1.0-4.8); MEAN CORPUSCULAR HEMOGLOBIN 31.1 pg (28.0-32.0); MEAN CORPUSCULAR HGB CONC 33.9 g/dl (32.0-36.0); MEAN CORPUSCULAR VOLUME 91.8 fl (83.0-99.0); MEAN PLATELET VOLUME 9.1 fl (9.4-12.4); MONOCYTES ABSOLUTE AUTO 0.9 K/mm3 (0.0-0.8); MONOCYTES PERCENT AUTO 10.1 % (0.0-8.0); NEUTROPHILS ABSOLUTE AUTO 3.6 K/mm3 (1.8-7.7); NEUTROPHILS PERCENT AUTO 42.5 % (41.0-71.0); PLATELET COUNT,PLT 215 K/mm3 (150-400); RED BLOOD CELL COUNT 4.63 M/mm3 (4.52-5.90); WHITE BLOOD CELL COUNT,WBC 8.41 K/mm3 (3.9-11.3)
[2023-04-10 07:56] LABS: A/G RATIO 0.9 (1-2); ALBUMIN 3.6 g/dl (3.4-5.0); ANION GAP 13.5 (5-15); BILIRUBIN TOTAL 0.4 mg/dL (0.2-1.0); BUN/CREATININE RATIO 12.5 (14-18); CALCIUM 8.6 mg/dL (8.5-10.1); CREATININE 0.8 mg/dL (0.7-1.3); EST CRCL DRUG DOSING (CG) 103.92 mL/min; ETHANOL BLOOD MEDICAL 0.24 gm% (0.00); MAGNESIUM 1.7 mg/dL (1.8-2.4); POTASSIUM,K 3.5 mEq/L (3.5-5.1); PROTEIN TOTAL,TP 7.7 g/dl (6.4-8.2)
[2023-04-10] MEDS ORDERED: Propofol 200 MG/20 ML SDV IVPUSH ONE (08:00)
[2023-04-10 08:08] LABS: INR 1.05; PROTHROMBIN TIME 11.2 SECONDS (9.7-12.0)
[2023-04-10 08:09] LABS: PTT,PARTIAL THROMBOPLSTIN TIME 26.5 SECONDS (21.7-31.4)
[2023-04-10 09:41] LABS: APPEARANCE,URINE CLEAR (Clear); BILIRUBIN,URINE NEGATIVE (Negative); COLOR,URINE LIGHT YELLOW (Yellow); GLUCOSE,URINE NEGATIVE (Negative); KETONES,URINE NEGATIVE (Negative); LEUKOCYTE ESTERASE,URINE NEGATIVE (Negative); NITRITE,URINE NEGATIVE (Negative); OCCULT BLOOD,URINE NEGATIVE (Negative); PROTEIN,URINE NEGATIVE (Negative); UROBILINOGEN,URINE 0.2 (0.2-1.0)
[2023-04-10 09:52] LABS: BACTERIA,URINE FEW /hpf (FEW); MUCUS,URINE RARE /hpf (FEW); RBC,URINE 0-5 /hpf (0-5); SQUAMOUS EPITHELIAL CELLS,UR 0-5 /hpf (0-5); WBC,URINE 0-5 /hpf (0-5)
[2023-04-10 09:57] LABS: BARBITURATE SCREEN,URINE NEGATIVE (CUTOFF=200); BENZODIAZEPINES SCREEN,URINE NEGATIVE (CUTOFF=150); BUPRENORPHINE SCREEN,URINE NEGATIVE (CUTOFF=10); METHADONE SCREEN, URINE NEGATIVE (CUT0FF=200); METHAMPHETAMINES SCREEN, URINE NEGATIVE (CUTOFF=500); OXYCODONE SCREEN,URINE NEGATIVE (CUT0FF=100); THC SCREEN,URINE 20 NG/ML NEGATIVE (CUTOFF=50)
[2023-04-10 09:59] LABS: AMPHETAMINES SCREEN, URINE NEGATIVE (CUTOFF=500)
== END 2023-04-10 09:30 ==
LOC: JD.ED 06:35
DX: S83.412A Sprain of medial collateral ligament of left knee, initial encounter (principal); S83.105A Unspecified dislocation of left knee, initial encounter; I10 Essential (primary) hypertension; E03.9 Hypothyroidism, unspecified; E66.9 Obesity, unspecified; Z68.38 Body mass index [BMI] 38.0-38.9, adult; Z79.899 Other long term (current) drug therapy; W01.0XXA Fall on same level from slipping, tripping and stumbling without subsequent striking against object, initial encounter
CPT/HCPCS: 27550; 36415; 73560; 80053; 80306; 80307; 81001; 83735; 85025; 85610; 85730; 99152; 99285; J2704; J3490